=== PATIENT | male | born 1980 | race Caucasian/White ===

== ENCOUNTER 2017-05-11 13:17 | Emergency (ER) | payer BC ==
[~2017-05-11] VITALS: Ht 180.3 cm; Wt 80.0 kg
[2017-05-11 13:23] VITALS: BP 124/87; PULSE 98; RESP 20; TEMP 98.7
--- NOTE | 2017-05-11 13:38 | PD ---
HPI Chief Complaint: Abdominal Pain Time Seen by Provider: 13:28 Travel History International Travel<30 days: No Contact w/Intl Traveler<30days: No Traveled to known affect area: No History of Present Illness HPI 36-year-old male complains of abdominal pain with nausea vomiting. Patient states the pain severe pain cramping pain localized to right upper quadrant of the abdomen. Patient denies any pain radiation. Patient denies any fever chills. Patient denies any dysuria or frequency. Patient denies any headache. Patient denies any coughing congestion. Patient denies any chest pain or shortness of breath. Patient status post appendectomy in the past. On a scale of 1-10 the pain is a 5. PFSH Past Medical History ?: Not Past Surgical History Appendectomy: Yes Social History Alcohol Use: Yes Tobacco Use: No Substance Use: No Allergies-Medications (Allergen,Severity, Reaction): Coded Allergies: No Known Allergies (Unverified , 05/11/17) Reported Meds & Prescriptions Reported Meds & Active Scripts Active No Active Prescriptions or Reported Medications Review of Systems General / Constitutional: No: Fever Eyes: No: Visual changes HENT: No: Headaches Cardiovascular: No: Chest Pain or Discomfort Respiratory: No: Shortness of Breath Gastrointestinal: Positive: Nausea, Vomiting, Abdominal Pain Genitourinary: No: Dysuria Musculoskeletal: No: Pain Skin: No Rash Neurologic: No: Weakness Psychiatric: No: Depression Endocrine: No: Polydipsia Hematologic/Lymphatic: No: Easy Bruising Physical Exam Narrative GENERAL: Well-nourished, well-developed patient. SKIN: Focused skin assessment warm/dry. HEAD: Normocephalic. EYES: No scleral icterus. No injection or drainage. NECK: Supple, trachea midline. No JVD or lymphadenopathy. CARDIOVASCULAR: Regular rate and rhythm without murmurs, gallops, or rubs. RESPIRATORY: Breath sounds equal bilaterally. No accessory muscle use. GASTROINTESTINAL: Abdomen soft, nondistended. Patient has moderate tenderness on palpation right upper quadrant of the abdomen. No rebound tenderness. No mass. MUSCULOSKELETAL: No cyanosis, or edema. BACK: Nontender without obvious deformity. No CVA tenderness. Neurologic exam normal. Data Data Last Documented VS Vital Signs Date Time Temp Pulse Resp B/P Pulse Ox O2 Delivery O2 Flow Rate FiO2 05/11/17 15:25 68 20 104/61 98 05/11/17 13:23 98.7 Orders Complete Blood Count With Diff (05/11/17 13:33) Comprehensive Metabolic Panel (05/11/17 13:33) Prothrombin Time / Inr (Pt) (05/11/17 13:33) Act Partial Throm Time (Ptt) (05/11/17 13:33) Lipase (05/11/17 13:33) Urinalysis - C+S If Indicated (05/11/17 13:33) Ct Abd/Pel W Iv Contrast(Rout) (05/11/17 13:33) Iv Access Insert/Monitor (05/11/17 13:33) Ecg Monitoring (05/11/17 13:33) Oximetry (05/11/17 13:33) Sodium Chlor 0.9% 1000 Ml Inj (Ns 1000 M (05/11/17 13:45) Ondansetron Inj (Zofran Inj) (05/11/17 13:45) Morphine Inj (Morphine Inj) (05/11/17 13:45) Morphine Inj (Morphine Inj) (05/11/17 14:15) Morphine Inj (Morphine Inj) (05/11/17 14:15) Hydromorphone Pf Inj (Dilaudid Pf Inj) (05/11/17 14:30) Hydromorphone Pf Inj (Dilaudid Pf Inj) (05/11/17 15:00) Iohexol 350 Inj (Omnipaque 350 Inj) (05/11/17 15:00) Ketorolac Inj (Toradol Inj) (05/11/17 15:15) Labs Laboratory Tests Test 05/11/17 13:45 White Blood Count 16.3 TH/MM3 Red Blood Count 5.50 MIL/MM3 Hemoglobin 16.7 GM/DL Hematocrit 48.4 % Mean Corpuscular Volume 87.9 FL Mean Corpuscular Hemoglobin 30.4 PG Mean Corpuscular Hemoglobin 34.6 % Concent Red Cell Distribution Width 11.9 % Platelet Count 304 TH/MM3 Mean Platelet Volume 7.9 FL Neutrophils (%) (Auto) 78.1 % Lymphocytes (%) (Auto) 12.2 % Monocytes (%) (Auto) 7.0 % Eosinophils (%) (Auto) 1.4 % Basophils (%) (Auto) 1.3 % Neutrophils # (Auto) 12.8 TH/MM3 Lymphocytes # (Auto) 2.0 TH/MM3 Monocytes # (Auto) 1.1 TH/MM3 Eosinophils # (Auto) 0.2 TH/MM3 Basophils # (Auto) 0.2 TH/MM3 CBC Comment DIFF FINAL Differential Comment Prothrombin Time 10.9 SEC Prothromb Time International 1.0 RATIO Ratio Activated Partial 24.3 SEC Thromboplast Time Sodium Level 142 MEQ/L Potassium Level 3.8 MEQ/L Chloride Level 105 MEQ/L Carbon Dioxide Level 27.1 MEQ/L Anion Gap 10 MEQ/L Blood Urea Nitrogen 17 MG/DL Creatinine 1.30 MG/DL Estimat Glomerular Filtration 63 ML/MIN Rate Random Glucose 153 MG/DL Calcium Level 9.2 MG/DL Total Bilirubin 0.5 MG/DL Aspartate Amino Transf 14 U/L (AST/SGOT) Alanine Aminotransferase 28 U/L (ALT/SGPT) Alkaline Phosphatase 73 U/L Total Protein 7.8 GM/DL Albumin 4.1 GM/DL Lipase 113 U/L [facility] Medical Decision Making Medical Screen Exam Complete: Yes Emergency Medical Condition: Yes Interpretation(s) 1453 PM. CBC WBC 16.3. 78 neutrophil. CMP within normal limit. Differential Diagnosis Differential diagnosis including gastritis, PUD, pancreatitis, cholecystitis, colitis, UTI, pyelonephritis, nephrolithiasis. Narrative Course 36-year-old male with right upper quadrant abdominal pain, nausea vomiting. Normal saline solution 1 25 cc an hour. Morphine 2 mg IV. Zofran 4 mg IV. Morphine 2 mg IV. Dilaudid 2 mg IV. Toradol 30 mg IV. Diagnosis Primary Impression: Nephrolithiasis Patient Instructions: General Instructions Additional Instructions: Take medication as needed for pain. Follow-up with urologist. Strain all urine. Return if intractable pain, fever, persistent vomiting. Med/Other Pt SpecificInfo: Prescription(s) given Scripts Tamsulosin (Flomax)0.4 Mg Cap0.4 Mg PO HS #10 CAP Ref 0 Prov:Joni Fishman MD 05/11/17 Ondansetron Odt (Zofran Odt)4 Mg Tab4 Mg SL Q6HR PRN (Nausea/Vomiting) #10 TAB Prov:Joni Fishman MD 05/11/17 Hydrocodone-Acetaminophen ([place])5-325 mg Tab1 Tab PO Q6H PRN (PAIN) #30 TAB Prov:Joni Fishman MD 05/11/17 Disposition: 01 DISCHARGE HOME Condition: Stable Joni Fishman MD May 11, 2017 13:38
[2017-05-11 13:41] VITALS: O2SAT 97
[2017-05-11] MEDS ORDERED: MORPHINE SULFATE 8 MG/ML INJ IV PUSH ONE ×2 (13:45→14:15)
[2017-05-11] MEDS ORDERED: ONDANSETRON HCL 4 MG/2 ML VIAL IV PUSH ONE (13:45)
[2017-05-11] MEDS ORDERED: SODIUM CHLOR 0.9% 1000 ML INJ 1,000 ML IV SCH (13:45)
[2017-05-11] MEDS ORDERED: MORPHINE SULFATE 4 MG/ML INJ IV PUSH ONE ×2 (13:45→14:15)
[2017-05-11 13:54] VITALS: BP 119/74; PULSE 98; RESP 20; O2SAT 97
[2017-05-11 13:56] LABS: AUTOMATED NEUTROPHIL # 12.8 TH/MM3 (1.8-7.7); BASOPHIL # 0.2 TH/MM3 (0-0.2); BASOPHIL % 1.3 % (0.0-2.0); EOSINOPHIL # 0.2 TH/MM3 (0-0.4); EOSINOPHIL % 1.4 % (0.0-4.0); HEMATOCRIT 48.4 % (39.0-51.0); HEMO FLAGS DIFF FINAL; LYMPH % 12.2 % (9.0-44.0); MEAN CELL VOLUME 87.9 FL (80.0-100.0); MEAN CORPUSCULAR HEMOGLOBIN 30.4 PG (27.0-34.0); MEAN CORPUSCULAR HGB CONC 34.6 % (32.0-36.0); NEUT % 78.1 % (16.0-70.0); PLATELET COUNT 304 TH/MM3 (150-450); RED CELL DISTRIBUTION WIDTH 11.9 % (11.6-17.2); WHITE BLOOD COUNT 16.3 TH/MM3 (4.0-11.0)
[2017-05-11 14:03] LABS: CHLORIDE 105 MEQ/L (98-107); POTASSIUM 3.8 MEQ/L (3.5-5.1); SODIUM (NA) 142 MEQ/L (136-145)
[2017-05-11 14:07] LABS: ANION GAP 10 MEQ/L (5-15); BICARBONATE 27.1 MEQ/L (21.0-32.0); BLOOD UREA NITROGEN 17 MG/DL (7-18)
[2017-05-11 14:08] LABS: APTT (PATIENT) 24.3 SEC (24.3-30.1); PROTHROMBIN TIME - PATIENT 10.9 SEC (9.8-11.6)
[2017-05-11 14:10] LABS: ALT (GPT) 28 U/L (12-78); AST (GOT) 14 U/L (15-37); GLOMERULAR FILTRATION RATE 63 ML/MIN (>89)
[2017-05-11 14:11] LABS: TOTAL BILIRUBIN ADULT 0.5 MG/DL (0.2-1.0)
[2017-05-11 14:13] LABS: ALKALINE PHOSPHATASE 73 U/L (45-117)
[2017-05-11] MEDS ORDERED: HYDROmorphone HCL PF 1 MG/ML VIAL IV PUSH ONE ×2 (14:30→15:00)
[2017-05-11 14:36] VITALS: BP 98/65; PULSE 104; RESP 20; O2SAT 95
[2017-05-11] MEDS ORDERED: IOHEXOL 350 MG/ML 10 ML VIAL (for RAD DIAG) IV ONE (15:00)
[2017-05-11] MEDS ORDERED: KETOROLAC TROMETHAMINE 30 MG/ML (IVP) VIAL IV PUSH ONE (15:15)
[2017-05-11 15:25] VITALS: BP 104/61; PULSE 68; RESP 20; O2SAT 98
--- NOTE | 2017-05-11 15:26 | RADRPT ---
EXAM DATE/TIME: 05/11/2017 14:35 [place] COMPARISON: No previous studies available for comparison. INDICATIONS : Severe right upper quadrant abdominal pain. IV CONTRAST: 100 cc Omnipaque 350 (iohexol) IV ORAL CONTRAST: No oral contrast ingested. RADIATION DOSE: 6.56 CTDIvol (mGy) MEDICAL HISTORY : None SURGICAL HISTORY : Appendectomy. ENCOUNTER: Initial ACUITY: 1 day PAIN SCALE: 10/10 LOCATION: Right upper quadrant TECHNIQUE: Volumetric scanning of the abdomen and pelvis was performed. Using automated exposure control and ad justment of the mA and/or kV according to patient size, radiation dose was kept as low as reasonably achievable to obtain optimal diagnostic quality images. DICOM format image data is available electro nically for review and comparison. FINDINGS: Lung bases and are clear. No acute findings in the liver, spleen, adrenals or pancreas. There is mild right-sided hydronephrosis and perinephric stranding as well as ureteral dilatation abo ve an approximately 2-3 mm calculus at the right ureterovesical junction. No bowel obstruction, free air or free fluid. No acute bony abnormalities. CONCLUSION: 1. Right-sided obstructive uropathy with mild right hydronephrosis and a 2-3 mm calculus at the right ureterovesical junction. Elmer Riley MD on May 11, 2017 at 15:21 Board Certified Radiologist. This report was verified electronically.
[2017-05-11] MEDS ORDERED: ZOFR4TAB3 SL (15:39)
[2017-05-11] MEDS ORDERED: TAMS5CAP PO (15:39)
[2017-05-11] MEDS ORDERED: NORC5TAB PO (15:39)
== END 2017-05-11 15:54 | disposition home or self-care (01) ==
LOC: PHED 13:17
DX: N20.0 Calculus of kidney (principal)
CPT/HCPCS: 74177; 80053; 83690; 85025; 85610; 85730; 96361; 96374; 96375; 96376; 99285; J1170; J1885; J2270; J2405; J7030; Q9967